=== PATIENT | male | born 1935 | race Caucasian/White ===

== ENCOUNTER 2016-09-25 06:09 | Day surgery (SDC) | payer OTHER, BC ==
[~2016-09-25] VITALS: Ht 175.3 cm; Wt 93.5 kg
[~2016-09-25 06:09] MED LIST: ALEVE220 MG PO; ALLERGY RELIEF10 M5 PO; AMBIEN5 MG PO; FIBER THERAPY0.52 GM PO; IPRATROPIUM BRO30 ML BOTH NARES; MULTI VITAMIN1 EACH PO; PROSCAR5 MG PO; SOTALOL AF80 MG PO; VITAMIN B12 PO; VITAMIN D31000 UNI2 PO; XARELTO20 MG PO; ZOLOFT50 MG PO
[2016-09-25 07:06] LABS: HEMATOCRIT 43.8 % (38.0-50.0); MCH 32.3 PG (29.0-34.0); MCHC 34.7 G/DL (30.0-36.0); MEAN PLAT.VOLUME 10.5 uM^3 (9.0-12.4); PLATELET COUNT 151 K/uL (156-360); RBC DIS.WIDTH-CV 12.1 % (11.8-14.6); RBC DIS.WIDTH-SD 42.1 % (39-53); RED BLOOD COUNT 4.71 M/uL (4.00-5.50); WHITE BLOOD COUNT 6.2 K/uL (4.1-10.2)
[2016-09-25 07:21] VITALS: BP 159/84
[2016-09-25 07:39] LABS: ANION GAP 10 MEQ/L (2-14); CHLORIDE 107 MEQ/L (99-109); GFR ESTIMATE (CALCULATED) > 59 mL/min/; GLUCOSE 96 mg/dL (70-99); SAMPLE HEMOLYSIS CHECK 0; SAMPLE ICTERIC CHECK 0; SAMPLE LIPEMIA CHECK 0; SODIUM 142 MEQ/L (136-147); UREA NITROGEN (BUN) 12 mg/dL (9-23)
[2016-09-25 07:50] LABS: ADD MIUA? NO; BILIRUBIN NEGATIVE; BLOOD NEGATIVE; COLOR YELLOW ((YELLOW)); GLUCOSE (STRIP) NEGATIVE; KETONES NEGATIVE; LEUKOCYTES NEGATIVE; NITRITE NEGATIVE; PROTEIN (STRIP) NEGATIVE; SPECIFIC GRAVITY 1.014 (1.000-1.030); UROBILINOGEN 0.2 MG/DL (0.2-1.0)
[2016-09-25 16:07] VITALS: BP 123/58
[2016-09-25 19:25] VITALS: BP 101/58
[2016-09-25 23:41] VITALS: BP 99/57
[2016-09-26] MEDS ORDERED: HYDROCODON-ACE1 EAC7 PO (07:39)
[2016-09-26] MEDS ORDERED: BACLOFEN10 MG PO (07:39)
[2016-09-26 08:09] VITALS: BP 86/49; BP 86/498
[2016-09-26 09:58] VITALS: BP 91/55
[2016-09-26 11:28] VITALS: BP 91/46
[2016-09-26 12:42] VITALS: BP 109/55
== END 2016-09-26 15:29 | disposition home or self-care (01) ==
LOC: SDC 06:09 → 2SOUTH 12:40 → 3EAST 12:40 → SDC 13:36 → 3EAST 14:56
PROVIDERS: Neurological Surgery
PROC: 01NB0ZZ Release Lumbar Nerve, Open Approach (ICD-10-PCS; principal; 2016-09-25)
DX: M48.06 Spinal stenosis, lumbar region (principal); M54.16 Radiculopathy, lumbar region; G95.19 Other vascular myelopathies; I48.91 Unspecified atrial fibrillation; Z95.0 Presence of cardiac pacemaker; G47.30 Sleep apnea, unspecified; Z83.3 Family history of diabetes mellitus; Z82.0 Family history of epilepsy and other diseases of the nervous system; Z82.49 Family history of ischemic heart disease and other diseases of the circulatory system; Z79.01 Long term (current) use of anticoagulants; J30.9 Allergic rhinitis, unspecified
CPT/HCPCS: 72020; 76000; 80048; 81003; 85027; 94799; G0378; J0131; J0330; J0690; J1100; J1170; J2405; J3010; J3480; S0020